=== PATIENT | male | born 1955 | race Caucasian/White ===

== ENCOUNTER 2018-02-16 03:13 | Emergency (ER) | payer BC, OTHER ==
[~2018-02-16] VITALS: Ht 154.9 cm; Wt 87.5 kg
[2018-02-16 03:38] VITALS: BP 141/75
[2018-02-16] MEDS ORDERED: PRED20TA PO (03:48)
[2018-02-16] MEDS ORDERED: VALA1000 PO (03:48)
[2018-02-16] MEDS ORDERED: CLIN300C8 PO (03:48)
--- NOTE | 2018-02-16 03:49 | PHYS DOC ---
Past History Past Medical History: No Pertinent History Additional Past Surgical Histo: lipoma removal Smoking: Non-smoker Adult General Chief Complaint Chief Complaint: General Complaint HPI HPI Patient presents to the emergency department for evaluation. He states that for the past 2 days he has had some redness and warmth, and erythema, on his right forehead, radiating onto the top of his scalp, and anterior to his right ear, down the right side of his face, laterally he states he also has some tender lymphadenopathy, which on exam is present bilaterally. He denies any voice changes or headache. He has not had any vision changes, fevers, or pain with ocular movement. Palpation to the area is painful. There are no alleviating factors to his symptoms. He denies any wounds or definite precipitating symptoms. Review of Systems Review of Systems Constitutional: Denies fever or chills [] Eyes: Denies change in visual acuity, redness, or eye pain [] HENT: Denies nasal congestion or sore throat . The patient denies dental pain.[] Respiratory: Denies cough or shortness of breath [] Cardiovascular: The patient denies any shortness of breath, chest pain, palpitations, or orthopnea [] GI: Denies abdominal pain, nausea, vomiting, bloody stools or diarrhea [] Musculoskeletal: Denies back pain or joint pain [] Neurologic: Denies headache, focal weakness or sensory changes [] Allergies Allergies Allergies Coded Allergies Type Severity Reaction Last Updated Verified niacin Allergy Unknown Rash 02/16/18 Yes Physical Exam Physical Exam PHYSICAL EXAM: CONSTITUTIONAL: Well developed, well nourished HEAD: normocephalic, atraumatic EENT: PERRL, EOMI. ocular movement is painless. Conjunctivae normal color, sclerae non-icteric; moist mucous membranes. Tympanic membranes are normal bilaterally. Dentition is intact. There are no oral lesions. Pharynx is normal. NECK: Supple, non-tender; no meningismus. There is mildly tender submandibular lymphadenopathy. LUNGS: Lungs CTA, breathing even and unlabored. Normal air movement. HEART: Regular rate and rhythm, no murmur CHEST: No deformity; non-tender ABDOMEN: The abdomen is soft, and non-tender, no masses or bruits. EXTREM: Normal ROM; no deformity, no calf tenderness. Normal pulses palpable in all extremities. There is no pedal edema. SKIN: There is mild warmth and erythema, on the right forehead, and parietal scalp, some mild warmth anterior to the right ear. There are no vesicular lesions visualized. There is no other rash visualized. No diaphoresis NEURO: Alert; normal speech and cognition; CN's grossly intact; strength grossly intact without focal deficit. BACK: No CVA TTP. EKG EKG [] Radiology/Procedures Radiology/Procedures [] Course & Med Decision Making Course & Med Decision Making I'm uncertain of the etiology of the patient's symptoms. A cutaneous cellulitis is certainly considered in the differential, as is preeruptive shingles. The patient be treated presumptively for both, and the importance of close follow- up and return precautions were stressed. Dragon Disclaimer Dragon Disclaimer This electronic medical record was generated, in whole or in part, using a voice recognition dictation system. Departure Departure: Impression: Primary Impression: Facial cellulitis Disposition: HOME, SELF-CARE Condition: STABLE Referrals: JUDE HEADLEY (PCP) Patient Instructions: Cellulitis, Shingles Scripts Valacyclovir Hcl (VALACYCLOVIR) 1,000 Mg Tablet 1 TAB PO TID, #21 TAB Prov: BERLIN MELARA MD 02/16/18 Clindamycin Hcl (CLINDAMYCIN HCL) 300 Mg Capsule 1 CAP PO TID, #30 CAP Prov: BERLIN MELARA MD 02/16/18 Prednisone (PREDNISONE) 20 Mg Tablet 2 TAB PO DAILY, #5 TAB Prov: BERLIN MELARA MD 02/16/18 BERLIN MELARA MD Feb 16, 2018 03:49
[2018-02-16] MEDS ORDERED: CLINDAMYCIN HCL 150 MG CAPSULE PO ONE (04:00)
== END 2018-02-16 04:02 | disposition home or self-care (01) ==
LOC: ER 03:13
DX: L03.211 Cellulitis of face (principal); Z88.1 Allergy status to other antibiotic agents
CPT/HCPCS: 99283

== ENCOUNTER 2020-02-20 12:56 | Emergency (ER) | payer BC, OTHER ==
[~2020-02-20] VITALS: Ht 154.9 cm; Wt 94.3 kg
[2020-02-20 12:56] VITALS: BP 145/76
[~2020-02-20 12:56] MED LIST: CLIN300C8 PO; PRED20TA PO; VALA10008 PO
--- NOTE | 2020-02-20 14:22 | PHYS DOC ---
Past History Past Medical History: No Pertinent History Past Surgical History: Other Additional Past Surgical Histo: lipoma removal Smoking: Non-smoker Alcohol Use: None Drug Use: None Adult General Chief Complaint Chief Complaint: SKIN PROBLEM HPI HPI 64-year-old male presents for posterior head nodule. Onset was 4 days ago. Nothing known makes better or worse. Patient admits trying to "pop "area without success. Patient admits having several pimple-like lesions in the past that self resolved; however, this lesion has been painful since onset. Patient reports focal 6/10 pain that is nonradiating and sharp in nature. He reports laying on a pillow and wearing a hat makes worse. Otherwise, patient asymptomatic, denies any constitutional symptoms, denies any concerning signs or symptoms related to ongoing COVID-19 pandemic. Review of Systems Review of Systems Constitutional: Denies fever or chills Eyes: Denies change in visual acuity, redness, or eye pain HENT: Denies nasal congestion or sore throat Respiratory: Denies cough or shortness of breath Cardiovascular: No additional information not addressed in HPI GI: Denies abdominal pain, nausea, vomiting, bloody stools or diarrhea : Denies dysuria or hematuria Musculoskeletal: Denies back pain or joint pain Integument: Denies rash. Admits mild, raised area on posterior occiput. Nonpurulent, no streaking, no malodor Neurologic: Denies headache, focal weakness or sensory changes Endocrine: Denies polyuria or polydipsia All other systems were reviewed and found to be within normal limits, except as documented in this note. Allergies Allergies Allergies Coded Allergies Type Severity Reaction Last Updated Verified niacin Allergy Unknown Rash 02/16/18 Yes Physical Exam Physical Exam Constitutional: Well developed, well nourished, no acute distress, non-toxic appearance. HENT: Normocephalic, atraumatic, bilateral external ears normal, oropharynx moist, no oral exudates, nose normal. Mild inflamed follicle on posterior occiput. Mild induration, mild erythema from self excoriations, no expressible pus, no well-formed head, no streaking, no malodor, no lymphadenopathy Eyes: PERRLA, EOMI, conjunctiva normal, no discharge. Neck: Normal range of motion, no tenderness, supple, no stridor. Cardiovascular:Heart rate regular rhythm, no murmur Lungs & Thorax: Bilateral breath sounds clear to auscultation Abdomen: Bowel sounds normal, soft, no tenderness, no masses, no pulsatile masses. Skin: Warm, dry, no erythema, no rash. Back: No tenderness, no CVA tenderness. Extremities: No tenderness, no cyanosis, no clubbing, ROM intact, no edema. Neurologic: Alert and oriented X 3, normal motor function, normal sensory function, no focal deficits noted. Psychologic: Affect normal, judgement normal, mood normal. Current Patient Data Vital Signs Vital Signs Date Time Temp Pulse Resp B/P (MAP) Pulse Ox O2 Delivery O2 Flow Rate FiO2 02/20/20 12:56 98.1 70 18 145/76 (99) 97 Room Air EKG EKG [] Radiology/Procedures Radiology/Procedures [] Course & Med Decision Making Course & Med Decision Making Patient seen on ED arrival by myself Vital signs reviewed and grossly unremarkable. History and comprehensive physical exam non-concerning for any surgical abnormalities Discussed finding with patient, likely self-limiting process in nature. Advise continued supportive care with use of NSAIDs and Tylenol as needed for pain. Advised application of heating pad 3 times daily. Discussed no further requirement for labs or imaging at this time Patient agreeable to plan and eager to follow-up with PCP within upcoming 3 to 7 days for follow-up to ensure symptomatic improvement Strict return precautions discussed which include fever greater than 100.4, streaking, copious malodorous discharge, no other concerning signs of systemic illness with good understanding by patient All questions and concerns addressed prior to discharge departure Dragon Disclaimer Dragon Disclaimer This electronic medical record was generated, in whole or in part, using a voice recognition dictation system. Departure Departure: Impression: Primary Impression: Subcutaneous nodule of head Disposition: HOME/RESIDENCE PRIOR TO ADM Condition: STABLE Referrals: PCP,UNKNOWN (PCP) Follow-up with PCP to ensure symptomatic improvement Patient Instructions: Acetaminophen tablets or caplets, Heat Therapy, [id number] Additional Instructions: As mentioned prior to your ED departure; Heat area of concern 3 times daily Continue daily 81 mg aspirin as previously directed from PCP, start taking Tylenol 3 times daily as needed for pain Ensure follow-up with PCP to ensure symptomatic resolution Please return to ER if fever, chills, excessive purulent drainage, streaking or other concerning findings that worry you arise Justification of Admission: Justification of Admission: Justification of Admission Dx: N/A LINSEY BAIRES DO Feb 20, 2020 14:22
== END 2020-02-20 14:23 | disposition home or self-care (01) ==
LOC: ER 12:56
DX: R22.0 Localized swelling, mass and lump, head (principal); L98.8 Other specified disorders of the skin and subcutaneous tissue; Z88.1 Allergy status to other antibiotic agents
CPT/HCPCS: 99282